=== PATIENT | male | born 1935 | race Asian ===

== ENCOUNTER 2021-02-26 11:40 | Emergency (ER) | payer MEDICARE, MEDICAID ==
[~2021-02-26] VITALS: Ht 157.5 cm; Wt 52.3 kg
[2021-02-26] MEDS ORDERED: ALLO-45 PO (11:52)
[2021-02-26] MEDS ORDERED: AMLO-258 PO (11:52)
[2021-02-26] MEDS ORDERED: TAMS-13 PO (11:52)
[2021-02-26 12:45] LABS: HEMATOCRIT 26.6 % (41-53); HEMOGLOBIN 7.9 g/dL (13.5-17.5); MEAN CORPUSCULAR HGB CONC 29.7 G/dL (31.0-37.0); MEAN CORPUSCULAR VOLUME 68 fL (80-100); PLATELET COUNT (AUTO) 246 K/uL (150-450); RED BLOOD CELL COUNT(AUTO) 3.93 MIL/uL (4.50-5.90); RED CELL DISTRIBUTION WIDTH 19.5 % (11.5-14.5)
[2021-02-26 12:50] LABS: BAND NEUTROPHILS % (MANUAL) 1 % (0-5); CALCIUM, TOTAL 7.8 mg/dL (8.8-10.5); CREATININE 3.78 mg/dL (0.60-1.30); EOSINOPHILS % (MANUAL) 4 % (1-6); LYMPHOCYTES % (MANUAL) 30 % (22-44); MONOCYTES % (MANUAL) 6 % (2-9); POTASSIUM 5.4 mmol/L (3.5-5.1); SEGMENTED NEUTROPHILS % 59 % (40-70)
[2021-02-26 12:51] LABS: COVID AG,FIA SOURCE NASOPHARYNGEAL
[2021-02-26 12:56] LABS: ALBUMIN 3.5 g/dL (3.4-5.0); BILIRUBIN,TOTAL 0.2 mg/dL (0.1-1.0); TOTAL PROTEIN, SERUM 7.6 g/dL (6.4-8.2)
[2021-02-26 15:16] LABS: APPEARANCE,URINE CLEAR (CLEAR); BILIRUBIN,URINE NEGATIVE (NEGATIVE); GLUCOSE, URINE (UA) NEGATIVE (NEGATIVE); KETONES,URINE NEGATIVE (NEGATIVE); LEUKOCYTE ESTERASE ,URINE SMALL (NEGATIVE); NITRATE,URINE NEGATIVE (NEGATIVE); OCCULT BLOOD,URINE SMALL (NEGATIVE); PH,URINE 5.5 (5.0-8.0); PROTEIN,URINE SEE CONFIRM (NEGATIVE); UROBILINOGEN,URINE 0.2 mg/dL (<=1.0)
[2021-02-26 15:32] LABS: SULFOSALICYLIC ACID,URINE 3+ (Negative)
[2021-02-26 15:33] LABS: BACTERIA,URINE Few /HPF (None Seen); SQUAMOUS EPITHELIAL CELL,UR Rare /LPF (None Seen)
[2021-02-26 16:25] VITALS: BP 157/73
== END 2021-02-26 16:43 | disposition home or self-care (01) ==
LOC: EMS 11:40
DX: N39.0 Urinary tract infection, site not specified (principal); N19 Unspecified kidney failure; I10 Essential (primary) hypertension; Z20.822 Contact with and (suspected) exposure to COVID-19
CPT/HCPCS: 71045; 80053; 81001; 81002; 83880; 84484; 85025; 87077; 87086; 87186; 99285; 36415-L1; 36415-TC